=== PATIENT | female | born 1995 | race Caucasian/White ===

== ENCOUNTER 2025-03-09 18:43 | Emergency (ER) | payer BC, SELFPAY ==
[2025-03-09 18:48] VITALS: BP 150/102; PULSE 88; TEMP 37; O2SAT 98; BMI 30.1
--- NOTE | 2025-03-09 18:55 | XR_ITS ---
[facility] [id number] Patient Name: IRVING GAMBOA MRN: [id number] date: 1995 Sex: F Assigned Patient Location: ER Current Patient Location: ED.MAIN Accession/Order Number: [id number] Exam Date: 03/09/2025 19:03 Report Date: 03/09/2025 19:32 At the request of: JANIS MCLEAN Procedure: XR wrist RT min 3V 3 views right wrist CLINICAL HISTORY: Dog bite COMPARISON: None FINDINGS: No fracture or dislocation. There is soft tissue swelling identified radial aspect of the wrist. No foreign body or subcutaneous emphysema. XR/XR wrist RT min 3V IMPRESSION: NEGATIVE ACUTE OSSEOUS ABNORMALITIES. SOFT TISSUE SWELLING WITHOUT RADIOPAQUE FOREIGN BODY. Impression dictated by: Kimani Torres M.D. 03/09/2025 7:32 PM Dictation Location: [place] [id number] Electronically authenticated by: [id number] Y Date: 03/09/2025 19:32
--- NOTE | 2025-03-09 18:55 | ED.ANIMALBI1 ---
HPI - Animal Bite General Chief Complaint: Animal Bite Stated Complaint: DOG BITE ON RIGHT HAND Time Seen by Provider: 03/09/25 18:54 Source: patient Mode of arrival: walk-in Limitations: no limitations History of Present Illness HPI narrative: 29 year old female presents to the ED for a dog bite to her right wrist. It occurred around 1600 today. States her neighbor's dog jumped the fence and bit her arm. Denies weakness, N/T. Tetanus status is unknown. Related Data Previous Rx's ?Medication ?Instructions ?Recorded amoxicillin 875 mg-potassium 1 tab PO BID 5 days #10 tabs 03/09/25 clavulanate 125 mg tablet hydrocodone 5 mg-acetaminophen 325 1 tab PO Q8H PRN pain 3 days #9 03/09/25 mg tablet tabs ibuprofen 800 mg tablet 800 mg PO Q8H PRN pain #12 tabs 03/09/25 Allergies Allergy/AdvReac Type Severity Reaction Status Date / Time No Known Drug Allergies Allergy Verified 03/09/25 18:48 Review of Systems ROS Constitutional Denies: fever or chills Cardiovascular Denies: chest pain Respiratory Denies: shortness of breath Musculoskeletal Reports: extremity pain and extremity swelling Integumentary/Breast Reports: skin pain, skin tenderness and sores Neurological Denies: numbness in extremities or weakness in extremities PFSH PFSH Social History Little interest or pleasure in doing things: not at all Feeling down, depressed, or hopeless: not at all Exam Constitutional Vital Signs, click to edit/add: Last Vital Signs Temp 98.6 F 03/09/25 18:48 Pulse 88 03/09/25 18:48 Resp 16 03/09/25 18:48 BP 150/102 H 03/09/25 18:48 Pulse Ox 98 03/09/25 18:48 O2 Del Method Room Air 03/09/25 18:48 Common normals: oriented x3 General appearance: cooperative Eye Common normals: conjunctivae normal and no scleral icterus Neck & C-Spine Common normals: supple Respiratory Common normals: normal respiratory effort Effort & inspection: able to speak in complete sentences and symmetric chest movement Cardio Common normals: regular rate Peripheral pulses: radial pulses present and ulnar pulses present Extremity Other: Swelling to right wrist. Decreased lateral ROM to the wrist due to pain. Distal sensation intact. Multiple abrasions, puncture wounds noted right wrist area. No active bleeding. Pulses palpable. Pt able to move all digits of right hand. Neuro Common normals: oriented x3 and moves all extremities Sensorium/orientation: awake and alert Speech: speech normal Course Vital Signs Vital signs: Vital Signs Temperature 98.6 F 03/09/25 18:48 Pulse Rate 88 03/09/25 18:48 Respiratory Rate 16 03/09/25 18:48 Blood Pressure 150/102 H 03/09/25 18:48 Pulse Oximetry 98 03/09/25 18:48 Oxygen Delivery Method Room Air 03/09/25 18:48 Temperature 98.6 F 03/09/25 18:48 Pulse Rate 88 03/09/25 18:48 Respiratory Rate 16 03/09/25 18:48 Blood Pressure 150/102 H 03/09/25 18:48 Pulse Oximetry 98 03/09/25 18:48 Oxygen Delivery Method Room Air 03/09/25 18:48 Discharge Plan Discharge Chief Complaint: Animal Bite Clinical Impression: Dog bite Patient Disposition: Home, Self-Care Time of Disposition Decision: 19:40 Condition: Good Mode of Transportation: Private Vehicle Prescriptions / Home Meds: New amoxicillin-pot clavulanate 875-125 mg tablet 1 tab PO BID 5 Days Qty: 10 0RF ibuprofen 800 mg tablet 800 mg PO Q8H PRN (Reason: pain) Qty: 12 0RF hydrocodone-acetaminophen 5-325 mg tablet 1 tab PO Q8H PRN (Reason: pain) 3 Days Qty: 9 0RF Print Language: Mongolian Instructions: Animal Bite (ED) Additional Instructions: Return to the ED for worsening symptoms. Referrals: Physician,Non-Staff, [Physician] - 1 week Discharge Date/Time: 03/09/25 19:57
[2025-03-09] MEDS: AMOXICILLIN/POT CLAV 875-125 MG TABLET 1 TAB PO (19:08)
[2025-03-09] MEDS: DIPHTH,PERTUSS(ACELL),TET VAC 0.5 ML SYRINGE IM (19:08)
--- NOTE | 2025-03-09 19:19 | PC.NURSE ---
[facility] contacted while awaiting verification to inform that she needs the pain pill.
[2025-03-09] MEDS: HYDROCODONE/ACET 5-325 MG TABLET 1 TAB PO (19:28)
== END 2025-03-09 19:57 | disposition home or self-care (01) ==
PROVIDERS: Emergency Provider Emergency Medicine; PCP Nurse Practitioner Family
DX: S61.531A Puncture wound without foreign body of right wrist, initial encounter (principal); W54.0XXA Bitten by dog, initial encounter; Z23 Encounter for immunization
CPT/HCPCS: 73110; 90471; 90715; 99284